=== PATIENT | female | born 1965 | race Caucasian/White ===

== ENCOUNTER → 2017-06-07 14:26 | Outpatient (CLI) | payer MEDICAID, SELFPAY ==
--- NOTE | 2017-06-07 14:36 | XR_ITS ---
EXAM: XR lumbar spine min 4V HISTORY: ITS.REASON: LOW BACK PAIN ORDERING PHYSICIAN: Marina Perdomo MD PATIENT AGE: 52 years COMPARISON: None FINDINGS: There is minimal lumbar curvature convex left. There is mild degenerative disc disease at T12-L1 and L1-L2. Osteophytes are present at T12, L1, and L2. No fracture or dislocation. No lytic or blastic change. A 2 mm calcific density is present in the left upper quadrant may be due to small renal stone IMPRESSION: Lumbar spondylosis with mild degenerative disc disease and osteophytosis Possible left nephrolithiasis
== END ==
PROVIDERS: PCP Family Medicine; Visit Provider Family Medicine
DX: M54.5 Low back pain (principal)
CPT/HCPCS: 72110

== ENCOUNTER → 2018-01-03 12:56 | Outpatient (CLI) | payer MEDICAID, SELFPAY ==
--- NOTE | 2018-01-03 | MM_ITS ---
MM Dig mamm BI DX w/CAD INDICATION: Follow-up abnormal mammogram ORDERING PHYSICIAN: Marina Perdomo MD PATIENT AGE: 52 years COMPARISON: 06/22/2017 TECHNIQUE: Routine images performed along with bilateral spot compression views The report is delayed as the patient came initially for a 6 month follow-up however the old exams were not available for comparison. There are now made available for comparison. FINDINGS: There is average fibroglandular tissue. Right breast: Asymmetric increased density is present in the right retroareolar region slightly lateral. This is somewhat more prominent when compared to the previous exam. There is persistent opacity in this region on the spot compression view. Ultrasound is suggested for further evaluation. Persistent retroareolar density is noted on the MLO view as well. Patient also reports a palpable abnormality in the upper outer aspect of the right breast. No mammographic abnormality apparent at this region. Left breast: Asymmetric density is present in the retroareolar region and may be due to fibroglandular tissue but somewhat more prominent than when compared to the previous study. Previously noted nodular density in the deep left breast on MLO view is not apparent. There is a faint nodular opacity deep or along the muscle on the MLO view possibly corresponding to the previously described abnormality measuring 4 mm. This has a benign appearance. Spot compression views of the upper aspect of the left breast in the MLO plane recommended similar to the previous exam. The old images were not available for review at the time of initial review of today's images. On the cc view there is a 3 mm nodule in the deep aspect of the left breast which may correspond to the nodule seen on the previous MLO. IMPRESSION: Incomplete, additional images recommended. Recommend ultrasound of both breasts. Also recommend spot compression views of the deep nodule in the left breast in both the CC and MLO plane BI-RADS Category: 0 Need Additional Imaging Evaluation RECOMMENDED FOLLOW-UP: IMM - IMMEDIATE FOLLOW-UP RECOMMENDED (A letter has been sent to the patient regarding results of the study.)
== END ==
PROVIDERS: Family Provider Family Medicine; PCP Family Medicine; Visit Provider Family Medicine
DX: R92.8 Other abnormal and inconclusive findings on diagnostic imaging of breast (principal); Z09 Encounter for follow-up examination after completed treatment for conditions other than malignant neoplasm
CPT/HCPCS: 77066

== ENCOUNTER → 2018-01-12 14:43 | Outpatient (CLI) | payer MEDICAID, SELFPAY ==
--- NOTE | 2018-01-12 14:45 | US_ITS ---
MM Dig mamm DX unilat LT CAD, US breast RT complete, US breast LT complete INDICATION: Follow-up abnormal exam ORDERING PHYSICIAN: Marina Perdomo MD PATIENT AGE: 52 years COMPARISON: 01/03/2018 and 06/22/2017 TECHNIQUE: Problem-solving views performed of the left breast along with bilateral breast ultrasound FINDINGS: Left mammogram: There are multiple small nodular opacities in the retroareolar region. Ultrasound showed ductal ectasia in the retroareolar area but no specific nodule. The asymmetric densities may be related to fibroglandular tissue along with ductal ectasia. The nodular density previously described in the deep upper left breast is unchanged from to 118. No malignant appearing mass or malignant appearing microcalcification. On the cc view the asymmetric densities to appear to compress out as fibroglandular tissue not significant changed. Left breast ultrasound: 5 mm cyst at 2:00. Ductal ectasia in the retroareolar region. No malignant appearing mass apparent. Small nodes are present in the axilla. Right breast ultrasound: 5 mm cyst at 9:00. Dilated ducts in the retroareolar region. The 9:00 cyst may correspond to the small nodule noted on the Joao. No malignant appearing mass apparent. IMPRESSION: No convincing evidence of malignancy. Small bilateral breast cysts and ductal ectasia along with asymmetric fibroglandular tissue likely accounts for the asymmetric densities BI-RADS Category: 3 Probably Benign Finding Short Term Follow-up RECOMMENDED FOLLOW-UP: 6M - 6 MONTH FOLLOW-UP (A letter has been sent to the patient regarding results of the study.)
== END ==
PROVIDERS: Family Provider Family Medicine; PCP Family Medicine; Visit Provider Family Medicine
DX: R92.8 Other abnormal and inconclusive findings on diagnostic imaging of breast (principal)
CPT/HCPCS: 76641; 77065

== ENCOUNTER → 2018-11-15 14:50 | Outpatient (CLI) | payer MEDICAID, SELFPAY ==
--- NOTE | 2018-11-15 14:53 | MR_ITS ---
MR knee RT wo con HISTORY: ITS.REASON: RIGHT KNEE PAIN, UNSPECIFIED CHRONICITY ORDERING PHYSICIAN: Marina Perdomo MD PATIENT AGE: 53 years Comparison: 01/11/2017. TECHNIQUE: Standard multiplanar multiecho sequences are performed without contrast. FINDINGS: Alignment and joint spaces appear normal. Cartilage area involving the femoral condyles appear to be intact. There is a small 3 mm defect in the articular cartilage at the medial facet of the patella without subchondral marrow edema. There is mild subchondral marrow edema at the epiphysis at the midline of the tibia which could be reactive at the site of attachment of the ACL. The ACL and PCL appear intact. The MCL and lateral capsular complex appear normal. There is generalized moderate intrameniscal intermediate signal involving the body and posterior horn of the medial meniscus. There is one image, #19 from series #7 shows the intermediate signal extends close to the inferior articular surface at the junction of the posterior body and posterior horn of the medial meniscus. Lateral meniscus appears normal. Quadriceps and patellar tendons are normal. Mild to moderate joint effusion. There is some subtle fluid signal extrinsic to the medial posterior aspect of the joint capsule. The low signal of the capsule appears to be intact. IMPRESSION: There is intrameniscal intermediate signal involving the posterior body and posterior horn of the medial meniscus which could be a intrameniscal tear or degenerative myxoid changes however, on one image this extends close to the inferior articular surface at the junction with the posterior body of the medial meniscus and therefore subtle small tear at this site is possible. Mild to moderate joint effusion. Very small focal area of grade II chondromalacia of the medial facet of the patella. There could be a strain of the medial posterior aspect of the joint capsule.
== END ==
PROVIDERS: PCP Family Medicine; Referring Provider Family Medicine; Visit Provider Family Medicine
DX: M25.561 Pain in right knee (principal)
CPT/HCPCS: 73721

== ENCOUNTER → 2019-02-01 13:57 | Outpatient (CLI) | payer MEDICAID, SELFPAY ==
--- NOTE | 2019-02-01 14:01 | CT_ITS ---
PROCEDURE: CT CHEST WO CON CLINICAL INDICATION: PE Shortness of air with exertion COMPARISON: No exams were available for comparison TECHNIQUE: Axial images obtained with sagittal and coronal reformats. All CT scans at the facility use one or more dose reduction, viz: automated exposure control, ma/kV adjustment per patient size (including targeted exams where dose is matched to indication, i.e. head), or iterative reconstruction technique. FINDINGS: No mediastinal or hilar mass. No evidence of aortic aneurysm. There is a moderate-sized hiatal hernia. There is mild centrilobular emphysema. No lobar consolidation or collapse. Mild bronchial thickening noted. There is a 6 mm noncalcified nodule in the right middle lobe nonspecific. Calcified nodules present in the right lower lobe anteriorly. Patchy density is noted in the right lower lobe anteriorly and laterally and may be due to an area of atelectasis or fibrosis. Similar density is present in the right lung base medially and posteriorly. Coronary artery calcifications are present. IMPRESSION: COPD/centrilobular emphysema. 6 mm right middle lobe nodule. Suggest 6 month follow-up Moderate-sized hiatal hernia Dictated by: Jesus Salcedo MD 02/01/2019 21:52 Electronically signed by Jesus Salcedo MD in [place] 02/02/2019 06:30
== END ==
PROVIDERS: PCP Family Medicine; Visit Provider Family Medicine
DX: I26.99 Other pulmonary embolism without acute cor pulmonale (principal)
CPT/HCPCS: 71250